=== PATIENT | male | born 1995 | race Caucasian/White ===

== ENCOUNTER 2016-05-09 00:18 | Emergency (ER) | payer OTHER ==
[~2016-05-09 00:18] MED LIST: ADVAIR 2501 DISK W/D; BIAXIN500 MG; KLONOPIN0.5 M1 PO; PERCOCET 5/3251 TAB PO; PREDNISONE20 MG; PRILOSEC20 MG PO; TYLENOL W/CODEI1 TAB; VENTOLIN17 GM; [UNRECOGNIZED DRUG - OTHER]
[2016-05-09] MEDS ORDERED: XANAX0.25 M1 PO (00:37)
[2016-05-09] MEDS ORDERED: BUSPIRONE HCL15 M2 PO (00:37)
[2016-05-09] MEDS ORDERED: PROPRANOLOL HCL80 M3 PO (00:37)
[2016-05-09 01:18] LABS: BASO % 0.3 % (0-2); EOS % 1.4 % (0-7); EOSINOPHIL ABSOLUTE COUNT 0.1 tho/cmm (0.0-0.7); HCT-HEMATOCRIT 42.8 % (36.0-53.5); HGB-HEMOGLOBIN 14.8 gm/dl (13.5-17.0); IMMATURE GRANULOCYTES ABSOLUTE 0.01 tho/cmm (0-0.03); IMMATURE GRANULOCYTES PERCENT 0.1 % (0-0.3); LYMPH % 23.3 % (20-45); LYMPH ABSOLUTE COUNT 2.1 tho/cmm (0.8-4.5); MCH (MEAN CORPUSCULAR HGB) 29.7 pg (28.0-32.0); MCHC MEAN CORPUSCULAR HGB CONC 34.6 % (32.0-36.0); MCV (MEAN CELL VOLUME) 85.9 fl (82.0-96.0); MEAN PLATELET VOLUME 10.4 cmc (9.4-12.4); MONO % 8.1 % (0-12); MONOCYTE ABSOLUTE COUNT 0.7 tho/cmm (0.0-1.2); NEUTROPHIL ABSOLUTE COUNT 6.1 tho/cmm (1.6-8.0); NEUTROPHIL-AUTOMATED 6.1 tho/cmm (1.6-8.0); NEUTROPHILS % 66.8 % (40-80); PLATELET COUNT 261 tho/cmm (150-450); RED BLOOD COUNT 4.98 mil/cmm (4.40-5.70); RED CELL DISTRIBUTION WIDTH 12.7 % (12.4-16.4); WHITE BLOOD COUNT 9.1 tho/cmm (4.0-10.0)
[2016-05-09 01:36] LABS: ANION GAP 11 mmol/L (0-20); BLOOD UREA NITROGEN 14 mg/dl (6-24); CARBON DIOXIDE-VENOUS 27 mmol/L (22-32); CHLORIDE 108 mmol/l (96-110); CREATININE 0.84 mg/dl (0.60-1.30); GLUCOSE 112 mg/dL (70-110); MAGNESIUM 2.2 mg/dl (1.3-2.6); POTASSIUM 3.8 mmol/L (3.7-5.1); SODIUM 142 mmol/L (135-145); T4 (THYROXINE) 8.7 ug/dl (5.0-12.6); eGFR VALUE FOR BLACK >90 mL/Min
== END 2016-05-09 02:25 ==
LOC: EDMED 00:18
PROVIDERS: Emergency Medicine
DX: F41.9 Anxiety disorder, unspecified (principal)
CPT/HCPCS: J2060; J2405